=== PATIENT | female | born 1965 | race African-American/Black ===

== ENCOUNTER 2017-03-03 16:02 | Emergency (ER) | payer OTHER ==
[~2017-03-03] VITALS: Ht 167.6 cm; Wt 97.5 kg
[~2017-03-03 16:02] MED LIST: ATIVAN0.5 M1 PO; BG MC; COL100 PO; COR6 PO; CYCLOBENZAPRINE5 M2 PO; ECO81 PO; ELA25 PO; ELA50 PO; GLIPIZIDE2.5 M1 PO; GLU5 PO; LAC PO; LANTUS SOLOS100 U/M1 SQ; LEVAQUIN250 MG PO; LEVAQUIN750 MG PO; LEVOFLOXACIN500 M1 PO; MAC100 PO; METFORMIN HCL1000 MG PO; METFORMIN HCL500 MG PO; NEU300 PO; PERCOCET1 TA5 PO; PYR100 PO; ROBDML PO; ZES5 PO; ZOC10 PO
[2017-03-03 17:08] LABS: PLATELET COUNT 234 x10^3mcL (130-400)
[2017-03-03 17:10] LABS: BASOPHIL % 0.4 % (0-2)
[2017-03-03 17:18] LABS: CARBON DIOXIDE 27.2 mmol/L (21-32); CHLORIDE SERUM 104 mmol/L (98-107); CREATININE SERUM 0.7 mg/dL (0.6-1.0); GFR1 > 60 mL/min; GLUCOSE SERUM 175 mg/dL (74-106); POTASSIUM SERUM 3.7 mmol/L (3.5-5.1); RED CELL DISTRIBUTION WIDTH 20.2 % (11.5-14.5); SODIUM SERUM 139 mmol/L (136-145)
[2017-03-03 17:27] LABS: rbc morphology (normal/abnorm) ABNORMAL (NORMAL)
[2017-03-03 17:30] LABS: ALKALINE PHOSPHATASE 136 U/L (46-116); ALT/SGPT 19 U/L (14-59); AST/SGOT 12 U/L (15-37); BILIRUBIN TOTAL 0.5 mg/dL (0.20-1.00); T4(THYROXINE) 6.7 ug/dL (4.7-13.3); TOTAL PROTEIN, SERUM 7.9 g/dL (6.4-8.2)
[2017-03-03 17:32] LABS: ALBUMIN 3.1 g/dL (3.4-5.0)
[2017-03-03 17:58] LABS: microscopic required? YES; urine erythrocyte 3+ (NEGATIVE)
[2017-03-03 19:45] VITALS: BP 128/69
== END 2017-03-03 19:45 | disposition home or self-care (01) ==
LOC: ED 16:02
PROVIDERS: Emergency Medicine
DX: N39.0 Urinary tract infection, site not specified (principal); E11.9 Type 2 diabetes mellitus without complications; E66.9 Obesity, unspecified; G82.20 Paraplegia, unspecified; E46 Unspecified protein-calorie malnutrition; L89.159 Pressure ulcer of sacral region, unspecified stage; Z88.5 Allergy status to narcotic agent
CPT/HCPCS: 83880; J1885; J1956; J7030; Q0092